=== PATIENT | female | born 1995 | race Caucasian/White ===

== ENCOUNTER 2018-09-19 06:37 | Emergency (ER) | payer BC ==
[~2018-09-19] VITALS: Ht 165.1 cm; Wt 90.7 kg
[2018-09-19 06:52] VITALS: BP_SYST 151
[2018-09-19] MEDS ORDERED: IBUPROFEN 800 MG TABLET PO ONE (07:00)
[2018-09-19] MEDS ORDERED: IPRATROPIUM BROM 0.5 MG/2.5 ML VIAL.NEB (ATROVENT) INH ONE (07:29)
[2018-09-19] MEDS ORDERED: ALBUTEROL SULFATE 0.083% 2.5 MG/3 ML VIAL.NEB INH ONE (07:29)
[2018-09-19] MEDS ORDERED: methylPREDNISolone SOD SUCC/PF 62.5 MG/ML VIAL IM ONE (07:30)
[2018-09-19] MEDS ORDERED: IPRATROPIUM/ALBUTEROL SULFATE 3 ML AMPUL.NEB (DUONEB) INH ONE (07:30)
[2018-09-19 10:13] VITALS: BP_SYST 144
== END 2018-09-19 10:13 | disposition home or self-care (01) ==
LOC: SED 06:37
DX: J10.1 Influenza due to other identified influenza virus with other respiratory manifestations (principal); J20.9 Acute bronchitis, unspecified; Z88.2 Allergy status to sulfonamides
CPT/HCPCS: 36415; 71045; 86710; 94640; 96372; 99284; J2930; J7613